=== PATIENT | female | born 1950 | race Caucasian/White ===

== ENCOUNTER 2022-06-15 08:50 | Day surgery (SDC) | payer MEDICARE, OTHER ==
[2022-06-15] MEDS: Nozin Nasal Sanitizer NASBOTH SCH ×2 (09:36→21:37)
[2022-06-15 09:43] LABS: ESTIMATED GFR 78 mL/min (>60)
[2022-06-15] MEDS ORDERED: Lactated Ringers 1,000 ML IV SCH (10:00)
[2022-06-15] MEDS ORDERED: fentaNYL 250 MCG/5 ML SDV ONE (10:03)
[2022-06-15] MEDS ORDERED: Rocuronium 50 MG/5 ML Vial ONE (10:04)
[2022-06-15] MEDS ORDERED: Ondansetron 4 MG/2 ML SDV ONE (10:04)
[2022-06-15] MEDS ORDERED: Propofol 200 MG/20 ML SDV ONE (10:04)
[2022-06-15] MEDS ORDERED: Succinylcholine 200 MG/10 ML MDV ONE (10:04)
[2022-06-15] MEDS ORDERED: Dexamethasone 4 MG/ML SDV ONE (10:04)
[2022-06-15] MEDS ORDERED: Neostigmine Methylsulfate 1 MG/ML 5 ML Syringe ONE (10:04)
[2022-06-15] MEDS ORDERED: Glycopyrrolate 0.2 MG/ML 5 ML MDV ONE (10:04)
[2022-06-15] MEDS ORDERED: Bupivacaine 0.5% 30 ML SDV ONE (10:06)
[2022-06-15] MEDS ORDERED: ceFAZolin 2 GM in Premix Bag 1 BAG IV ONE (10:30)
[2022-06-15] MEDS ORDERED: ceFAZolin 2 GM in Sodium Chloride 0.9% 50 ML IV ONE (10:30)
[2022-06-15] MEDS ORDERED: Bupivacaine 0.5% 50 ML MDV ONE (12:02)
[2022-06-15] MEDS ORDERED: oxyCODONE 5 MG Tab PO PRN (15:58)
[2022-06-15] MEDS ORDERED: Morphine 2 MG/ML SYRINGE IVPUSH PRN (16:00)
[2022-06-15] MEDS ORDERED: traMADol 50 MG Tab PO PRN (16:00)
[2022-06-15] MEDS ORDERED: ceFAZolin 1 GM in Sodium Chloride 0.9% 50 ML IV SCH (16:00)
[2022-06-15] MEDS: Acetaminophen 325 MG Tab PO SCH ×2 (16:31→21:37)
[2022-06-15] MEDS: Sodium Chloride 0.9% 1,000 ML IV SCH (18:57)
[2022-06-15] MEDS ORDERED: AMMONIUM LACTATE TOP SCH (21:00)
[2022-06-15] MEDS ORDERED: Nozin Nasal Sanitizer NASBOTH SCH (21:00)
[2022-06-15] MEDS: ceFAZolin 1 GM in Premix Bag 1 BAG IV SCH (21:41)
[2022-06-15] MEDS: Docusate Sodium 100 MG Cap PO SCH (21:46)
[2022-06-16] MEDS: Acetaminophen 325 MG Tab PO SCH ×4 (00:26→12:14)
[2022-06-16] MEDS: Sodium Chloride 0.9% 1,000 ML IV SCH ×2 (00:28→12:16)
[2022-06-16] MEDS: ceFAZolin 1 GM in Premix Bag 1 BAG IV SCH ×2 (04:22→12:17)
[2022-06-16] MEDS: Nozin Nasal Sanitizer NASBOTH SCH (08:31)
[2022-06-16] MEDS: Docusate Sodium 100 MG Cap PO SCH (08:31)
[2022-06-16] MEDS ORDERED: SALICYLIC ACID TOP SCH (16:00)
== END 2022-06-16 14:14 | disposition home or self-care (01) ==
LOC: JP.SDS 08:50 → JP.MS 15:45 → JP.SDS 06-16 14:14
PROVIDERS: ATTEND Specialist
DX: M19.012 Primary osteoarthritis, left shoulder (principal); M75.112 Incomplete rotator cuff tear or rupture of left shoulder, not specified as traumatic; M77.8 Other enthesopathies, not elsewhere classified; M25.412 Effusion, left shoulder; M35.3 Polymyalgia rheumatica; Z79.899 Other long term (current) drug therapy
CPT/HCPCS: 23472; 36415; 73020; 80053; 85027; 93005; 97110; 97116; 97161; 97535; A9270; C1713; C1776; J0330; J0690; J1100; J2270; J2405; J2704; J2710; J3010; J3490; J7030; J7120; 93010